=== PATIENT | male | born 1975 | race Caucasian/White ===

== ENCOUNTER 2017-01-08 16:28 | Emergency (ER) ==
[2017-01-08 16:38] VITALS: BP 145/89
[2017-01-08] MEDS ORDERED: FLEXERIL PO ONE (16:56)
[2017-01-08] MEDS ORDERED: NORCO-5 PO ONE (16:56)
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
== END 2017-01-08 17:38 | disposition home or self-care (01) ==
LOC: ED 16:28
DX: S13.4XXA Sprain of ligaments of cervical spine, initial encounter (principal); M25.531 Pain in right wrist; M54.5 Low back pain; M79.1 Myalgia; M62.830 Muscle spasm of back; F17.210 Nicotine dependence, cigarettes, uncomplicated; Z71.6 Tobacco abuse counseling; V49.40XA Driver injured in collision with unspecified motor vehicles in traffic accident, initial encounter